=== PATIENT | male | born 1970 | race Caucasian/White ===

== ENCOUNTER 2020-04-16 21:40 | Emergency (ER) | payer SELFPAY ==
[2020-04-16] MEDS ORDERED: Acetaminophen/HYDROcodone 325-10 MG Tab PO ONE ×2 (22:06→22:54)
--- NOTE | 2020-04-16 22:09 | EDM.PDOC ---
ED HPI GENERAL MEDICAL PROBLEM - General Chief Complaint: Back Pain or Injury Stated Complaint: FELL Time Seen by Provider: 04/16/20 21:54 - History of Present Illness INITIAL COMMENTS - FREE TEXT/NARRATIVE: History of present illness: The patient complains of severe right lateral chest wall pain and posterior lower chest pain. It hurts to breathe. The pain severe. Having that area touched her moving hurts as well. It limits the patient's ability to get a deep breath. Onset was yesterday when he fell. He has been to to clinics and a chiropractor. They done an x-ray but he does not know the results. Any head neck or extremity injury. He denies any numbness weakness loss of saddle area feeling or loss of control of bowel or bladder. He is urinating normally and he does not have any abdominal pain. Type II diabetic with no other medical problems. He is not on a blood thinner. [] Review of systems: As per history of present illness and below otherwise all systems reviewed and negative. Past medical history: As per history of present illness and as reviewed below otherwise noncontributory. Surgical history: As per history of present illness and as reviewed below otherwise noncontributory. Social history: No reported history of drug or alcohol abuse. Family history: As per history of present illness and as reviewed below otherwise noncontributory. Physical exam: Constitutional - well developed, well-nourished and in no acute distress HEENT - normocephalic, no evidence of trauma - external nose and mouth normal - no mass in neck and no JVD - mucosae moist EYES - full EOM, PERRL, no icterus - no evidence of inflammation, injection, or drainage Respiratory -this in the posterior infrascapular chest wall with no crepitation. Tenderness in the mid axillary line to the anterior axillary line in the lowest costal margin. No respiratory distress, equal bilateral expansion, lungs clear to auscultation and no abnormal lung sounds Cardiovascular - Regular Rhythm with S1 and S2 appreciated and no murmur, gallop or rub. GI - abdomen soft without distension or organomegaly - normal bowel sounds - no guard or rebound Musculoskeletal no gross deformity of long bones or joints - no tenderness, swelling or edema Neurologic - Alert and oriented times four - CN II-XII grossly intact - motor sensory and coordination symmetrically normal Psychiatric - appropriate mood and affect with normal thought content Hematologic - No petechiae or purpura - mucosa appropriate color and sclera not pale - normal nail bed color and refill Integument - no rash or evidence of trauma - normal turgor Diagnostics: [] Therapeutics: [] Impression: [] Plan: [] Definitive disposition and diagnosis as appropriate pending reevaluation and review of above. back Pain Score (Numeric/FACES): 10 - Related Data Allergies Allergy/AdvReac Type Severity Reaction Status Date / Time No Known Allergies Allergy Verified 04/16/20 22:04 Home Meds: Home Meds metFORMIN [Glucophage] 500 mg PO BID 11/10/14 [History] Hydrocodone/Acetaminophen [[place] 10-325 Tablet] 1 each PO Q4HR PRN #20 tablet 1 06/16/19 [Rx] Losartan/Hydrochlorothiazide [Losartan-HCTZ 50-12.5 MG] 1 tab PO DAILY 04/16/20 [History] gemfibroziL [Gemfibrozil] 600 mg PO BID 04/16/20 [History] ED ROS GENERAL - Review of Systems Review Of Systems: Comprehensive ROS is negative, except as noted in HPI. ED EXAM, GENERAL - Physical Exam Exam: See Below Free Text/Narrative:: My physical exam is in the HPI Course - Vital Signs Text/Narrative:: 2244 hrs. patient has an x-ray demonstrating a displaced seventh rib fracture on the right. No pneumothorax. There is a haziness in the area of the ninth rib that makes it impossible to preclude a small linear fracture in the ninth rib. There is no pneumothorax. Last Recorded V/S: Last Vital Signs Temp 36.2 C 04/16/20 21:42 Pulse 106 H 04/16/20 21:42 Resp 17 04/16/20 21:42 BP 124/79 04/16/20 21:42 Pulse Ox 96 04/16/20 21:42 - Orders/Labs/Meds Meds: Medications Discontinued Medications Generic Name Dose Route Start Last Admin Trade Name Freq PRN Reason Stop Dose Admin Hydrocodone Bitart/Acetaminophen 1 tab 04/16/20 22:06 04/16/20 22:12 [place] 325-10 Mg PO 04/16/20 22:07 1 tab ONETIME ONE Administration Hydrocodone Bitart/Acetaminophen 1 tab 04/16/20 22:54 [place] 325-10 Mg PO 04/16/20 22:55 ONETIME ONE Departure - Departure Time of Disposition: 22:45 Disposition: Home, Self-Care 01 Condition: Good Clinical Impression: Fall, Contusion, chest wall, Closed traumatic displaced fracture of rib - Discharge Information Prescriptions: Hydrocodone/Acetaminophen [[place] 10-325 Tablet] 1 each PO Q4HR PRN #20 tablet PRN Reason: Pain (Severe 7-10) Referrals: PCP,Not In Area [Primary Care Provider] - Forms: ED Department Discharge Additional Instructions: Walk deep breathing forces self not to develop pneumonia or collapse of the lung by being inactive. We can give you pain medicine. If he cannot tolerate it radiologist or chest surgeon pain medicine into the rib. However this carries the risk of collapsing her lung and causing a need for chest tube. [facility] [address] [place] [address] [place] [address] The following information is given to patients seen in the emergency department who are being discharged to home. This information is to outline your options for follow-up care. We provide all patients seen in our emergency department with a follow-up referral. The need for follow-up, as well as the timing and circumstances, are variable depending upon the specifics of your emergency department visit. If you don't have a primary care physician on staff, we will provide you with a referral. We always advise you to contact your personal physician following an emergency department visit to inform them of the circumstance of the visit and for follow-up with them and/or the need for any referrals to a consulting specialist. The emergency department will also refer you to a specialist when appropriate. This referral assures that you have the opportunity for follow-up care with a specialist. All of these measure are taken in an effort to provide you with optimal care, which includes your follow-up. Under all circumstances we always encourage you to contact your private physician who remains a resource for coordinating your care. When calling for follow-up care, please make the office aware that this follow-up is from your recent emergency room visit. If for any reason you are refused follow-up, please contact the [facility] Emergency Department at and asked to speak to the emergency department charge nurse. Sepsis Event Note (ED) - Evaluation Sepsis Screening Result: No Definite Risk - Focused Exam Vital Signs: Vital Signs Temp Pulse Resp BP Pulse Ox 04/16/20 21:42 36.2 C 106 H 17 124/79 96
--- NOTE | 2020-04-16 22:53 | CR ---
INDICATION: Right lateral posterior chest wall contusion TECHNIQUE: PA and lateral views of the chest COMPARISON: None FINDINGS: The lungs are clear. There is no pleural effusion or pneumothorax. The cardiomediastinal silhouette is normal. There are acute displaced fractures of the posterolateral right 7th and 9th ribs. Nonacute fractures are noted involving the left 7th and 8th rib. IMPRESSION: Acute displaced fractures of the right 7th and 9th ribs. No pneumothorax or hemothorax. Dictated by Eri Cisneros MD @ Apr 16 2020 10:48PM Signed by Dr. Eri Cisneros @ Apr 16 2020 10:51PM
[2020-04-16 23:16] VITALS: BP 100/62; PULSE 85
== END 2020-04-16 23:12 | disposition home or self-care (01) ==
LOC: MW.ED 21:40
DX: S22.31XA Fracture of one rib, right side, initial encounter for closed fracture (principal); Z79.899 Other long term (current) drug therapy; W18.30XA Fall on same level, unspecified, initial encounter
CPT/HCPCS: 71046; 99283; A9270

== ENCOUNTER 2021-12-11 13:07 | Emergency (ER) | payer BC ==
[2021-12-11] MEDS ORDERED: Sodium Chloride 0.9% 10 ML Syringe FLUSH PRN (13:15)
[2021-12-11] MEDS ORDERED: Sodium Chloride 0.9% 2.5 ML Syringe FLUSH PRN (13:15)
[2021-12-11] MEDS ORDERED: HYDROmorphone 1 MG/ML Syringe IVPUSH ONE (13:31)
[2021-12-11] MEDS ORDERED: Sodium Chloride 0.9% 1,000 ML IV ONE (13:31)
[2021-12-11] MEDS ORDERED: Ondansetron 4 MG/2 ML SDV IVPUSH ONE (13:32)
[2021-12-11 13:50] LABS: HEMOGLOBIN A1C 6.7 %
[2021-12-11 14:04] LABS: POTASSIUM,K 3.9 mmol/L (3.5-5.1)
[2021-12-11 15:51] VITALS: BP 125/85; PULSE 85
== END 2021-12-11 15:50 | disposition home or self-care (01) ==
LOC: MW.ED 13:07
DX: L03.116 Cellulitis of left lower limb (principal); I10 Essential (primary) hypertension; E78.00 Pure hypercholesterolemia, unspecified; Z79.84 Long term (current) use of oral hypoglycemic drugs; Z79.899 Other long term (current) drug therapy
CPT/HCPCS: 36415; 73610; 80053; 82947; 83036; 83605; 83690; 85025; 87040; 96374; 96375; 99283; J1170; J2405; J3490; J7030

== ENCOUNTER 2021-12-26 04:29 | Emergency (ER) | payer BC ==
[2021-12-26] MEDS ORDERED: Sodium Chloride 0.9% 1,000 ML IV ONE (05:13)
[2021-12-26] MEDS ORDERED: ceFAZolin/Dextrose,Iso-Osmotic 2 GM/50 ML Duplex Bag (Premix) IV STA (05:15)
[2021-12-26] MEDS ORDERED: HYDROmorphone 2 MG/ML Syringe IVPUSH ONE (06:07)
[2021-12-26 06:21] LABS: BLOOD UREA NITROGEN,BUN 14 mg/dL (7.0-18.0); CARBON DIOXIDE,CO2 24.2 mmol/L (21.0-32.0); CHLORIDE,CL 101 mmol/L (98-107); GLUCOSE RANDOM 441 mg/dL (74-106); POTASSIUM,K 4.1 mmol/L (3.5-5.1); SODIUM,NA 134 mmol/L (136-148)
[2021-12-26 06:23] LABS: ESTIMATED GFR 103 mL/min (>60)
[2021-12-26] MEDS ORDERED: Glucagon,Human Recombinant 1 MG Vial IM PRN (06:54)
[2021-12-26] MEDS ORDERED: Insulin Regular, Human 100 Units/ML 10 ML Vial IVPUSH ONE (06:54)
[2021-12-26] MEDS ORDERED: Acetaminophen/HYDROcodone 325-5 MG Tab PO ONE (08:29)
[2021-12-26 10:08] VITALS: BP 150/100; PULSE 78
== END 2021-12-26 10:07 | disposition home or self-care (01) ==
LOC: MW.ED 04:29
DX: L03.116 Cellulitis of left lower limb (principal); E11.65 Type 2 diabetes mellitus with hyperglycemia; I10 Essential (primary) hypertension; Z79.84 Long term (current) use of oral hypoglycemic drugs; Z79.899 Other long term (current) drug therapy
CPT/HCPCS: 36415; 73590-26-LT; 73590-LT; 73620-26-LT; 73620-LT; 80053; 83605; 83735; 85025; 85610; 85652; 86140; 87040; 93971-26-LT; 93971-LT; 96361; 96374; 96375; 99284-25; A9270-GY; J0690; J1170; J1815-GY; J7030